=== PATIENT | female | born 1990 | race Caucasian/White ===

== ENCOUNTER 2017-02-06 18:17 | Emergency (ER) | payer OTHER ==
[~2017-02-06] VITALS: Ht 162.6 cm; Wt 75.4 kg
[2017-02-06 20:00] LABS: MCH 28.4 PG (29.0-34.0); MCHC 32.4 G/DL (30.0-36.0); MCV 87.4 FL (83-99); MEAN PLAT.VOLUME 11.3 uM^3 (9.5-12.4); PLATELET COUNT 274 K/uL (156-360); RBC DIS.WIDTH-CV 13.2 % (11.8-14.6); RED BLOOD COUNT 4.69 M/uL (3.80-5.20)
[2017-02-06 20:09] LABS: CHLORIDE 105 mEq/L (99-109); POTASSIUM 5.2 mEq/L (3.7-5.4); SODIUM 138 mEq/L (136-147)
[2017-02-06 20:11] LABS: GLUCOSE 74 mg/dL (70-99)
[2017-02-06 20:13] LABS: ANION GAP 11 MEQ/L (2-14); TOTAL BILIRUBIN 0.4 mg/dL (0.0-1.0)
[2017-02-06 20:15] LABS: ALKALINE PHOSPHATASE 65 IU/L (3-129); GFR ESTIMATE (CALCULATED) > 59 mL/min/
[2017-02-06 20:16] LABS: UREA NITROGEN (BUN) 11 mg/dL (9-23)
[2017-02-06 20:26] LABS: QUANTITATIVE HCG < 4.0 MIU/ML
[2017-02-06] MEDS ORDERED: FIORICET 50-301 EACH PO (21:31)
[2017-02-06] MEDS ORDERED: IMITREX50 MG PO (21:31)
[2017-02-06 21:54] VITALS: BP 113/67
== END 2017-02-06 21:45 | disposition home or self-care (01) ==
LOC: EME 18:17 → EXP 18:17
PROVIDERS: Physician Assistant
DX: R51 Headache (principal)
CPT/HCPCS: 80053; 84702; 85027; 99281; 99285; J1200; J1885; J2765; J7030

== ENCOUNTER 2017-02-14 15:50 | Emergency (ER) | payer OTHER ==
[~2017-02-14] VITALS: Ht 162.6 cm; Wt 76.2 kg
[~2017-02-14 15:50] MED LIST: FIORICET 50-301 EACH PO; IMITREX50 MG PO
[2017-02-14 17:12] LABS: CHLORIDE 105 mEq/L (99-109); POTASSIUM 3.9 mEq/L (3.7-5.4); SODIUM 140 mEq/L (136-147)
[2017-02-14 17:13] LABS: GLUCOSE 99 mg/dL (70-99)
[2017-02-14 17:15] LABS: ANION GAP 11 MEQ/L (2-14)
[2017-02-14 17:17] LABS: GFR ESTIMATE (CALCULATED) > 59 mL/min/
[2017-02-14 17:18] LABS: TROP-I INTERPRETATION NEGATIVE; TROPONIN-I < 0.01 ng/mL (0.0-0.30); UREA NITROGEN (BUN) 7 mg/dL (9-23)
[2017-02-14 17:46] VITALS: BP 117/75
== END 2017-02-14 17:46 | disposition home or self-care (01) ==
LOC: EME 15:50
PROVIDERS: Physician Assistant
DX: R11.0 Nausea (principal); R07.89 Other chest pain; R06.02 Shortness of breath; T39.8X5A Adverse effect of other nonopioid analgesics and antipyretics, not elsewhere classified, initial encounter
CPT/HCPCS: 80048; 84484; 93005; 99281; 99283

== ENCOUNTER 2017-02-27 22:21 | Emergency (ER) | payer OTHER ==
[~2017-02-27] VITALS: Ht 162.6 cm; Wt 76.6 kg
[2017-02-28 01:50] LABS: ADD MIUA? YES; BILIRUBIN NEGATIVE; BLOOD LARGE; COLOR AMBER ((YELLOW)); GLUCOSE (STRIP) NEGATIVE; KETONES NEGATIVE; LEUKOCYTES LARGE; NITRITE POSITIVE; PROTEIN (STRIP) 30; UROBILINOGEN 0.2 MG/DL (0.2-1.0)
[2017-02-28 01:56] LABS: BACTERIA RARE /HPF; EPITHELIAL CELLS 2+ /HPF; HYALINE CASTS 0-5 /LPF; MUCUS 2+ /LPF; RED BLOOD CELLS TNTC /HPF (0-5); UCUL ADDED? YES; WHITE BLOOD CELLS TNTC /HPF (0-5)
[2017-02-28] MEDS ORDERED: PYRIDIUM100 MG PO (02:03)
[2017-02-28] MEDS ORDERED: MACROBID100 MG PO (02:03)
[2017-02-28 02:37] VITALS: BP 110/71
== END 2017-02-28 02:39 | disposition home or self-care (01) ==
LOC: EME 22:21 → RME 22:21
PROVIDERS: Physician Assistant
DX: N39.0 Urinary tract infection, site not specified (principal)
CPT/HCPCS: 81003; 87077; 87086; 87186; 99281; 99284; J0696

== ENCOUNTER 2017-03-06 00:27 | Emergency (ER) | payer OTHER ==
[~2017-03-06] VITALS: Ht 162.6 cm; Wt 76.2 kg
[~2017-03-06 00:27] MED LIST changes: +MACROBID100 MG PO; +PYRIDIUM100 MG PO
[2017-03-06] MEDS ORDERED: FIORICET,ESG1 TABLET PO (01:11)
[2017-03-06 01:37] VITALS: BP 112/69
== END 2017-03-06 01:38 | disposition home or self-care (01) ==
LOC: EME 00:27 → EXP 00:27
DX: G43.909 Migraine, unspecified, not intractable, without status migrainosus (principal)
CPT/HCPCS: 99281; 99284; J1885

== ENCOUNTER 2018-05-17 18:02 | Emergency (ER) | payer OTHER ==
[~2018-05-17] VITALS: Ht 162.6 cm; Wt 75.7 kg
[~2018-05-17 18:02] MED LIST changes: +FIORICET,ESG1 TABLET PO
[2018-05-17 18:44] LABS: HEMATOCRIT 38.5 % (36.0-46.0); HEMOGLOBIN 12.8 G/DL (11.9-15.5); MCH 29.6 PG (29.0-34.0); MCHC 33.2 G/DL (30.0-36.0); MCV 88.9 FL (83-99); PLATELET COUNT 259 K/uL (156-360); RBC DIS.WIDTH-CV 12.7 % (11.8-14.6); RBC DIS.WIDTH-SD 41.6 % (39-53); RED BLOOD COUNT 4.33 M/uL (3.80-5.20); WHITE BLOOD COUNT 9.2 K/uL (4.1-10.2)
[2018-05-17 19:01] LABS: QUANTITATIVE HCG < 4.0 MIU/ML
[2018-05-17 19:03] LABS: CHLORIDE 107 mEq/L (99-109); POTASSIUM 3.8 mEq/L (3.7-5.4); SODIUM 138 mEq/L (136-147)
[2018-05-17 19:04] LABS: GLUCOSE 108 mg/dL (70-99)
[2018-05-17 19:08] LABS: CREATININE 0.8 mg/dL (0.6-1.3); GFR ESTIMATE (CALCULATED) > 59 mL/min/
[2018-05-17 19:09] LABS: APPEARANCE CLOUDY ((CLEAR)); BILIRUBIN NEGATIVE; BLOOD LARGE; COLOR YELLOW ((YELLOW)); GLUCOSE (STRIP) NEGATIVE; KETONES NEGATIVE; LEUKOCYTES LARGE; NITRITE NEGATIVE; PROTEIN (STRIP) 30; SPECIFIC GRAVITY 1.019 (1.000-1.030); UROBILINOGEN 0.2 MG/DL (0.2-1.0)
[2018-05-17 19:09] LABS: UREA NITROGEN (BUN) 14 mg/dL (9-23)
[2018-05-17 19:14] LABS: BACTERIA RARE /HPF; EPITHELIAL CELLS 1+ /HPF; MUCUS TRACE /LPF; RED BLOOD CELLS 20-30 /HPF (0-5); UCUL ADDED? YES; WHITE BLOOD CELLS TNTC /HPF (0-5)
[2018-05-17 21:24] VITALS: BP 116/64
== END 2018-05-17 21:26 | disposition home or self-care (01) ==
LOC: EME 18:02 → EXP 18:02
PROVIDERS: Nurse Practitioner Family
DX: R10.31 Right lower quadrant pain (principal); N93.9 Abnormal uterine and vaginal bleeding, unspecified; R11.0 Nausea; T83.32XA Displacement of intrauterine contraceptive device, initial encounter; N83.202 Unspecified ovarian cyst, left side
CPT/HCPCS: 76856; 80048; 81003; 84702; 84702 90; 85027; 86900; 86901; 87077; 87086; 87186; 99281; 99284